=== PATIENT | female | born 1980 | race African-American/Black ===

== ENCOUNTER 2016-09-11 11:52 | Emergency (ER) | payer BC, MEDICAID ==
[~2016-09-11] VITALS: Ht 160 cm; Wt 97.5 kg
[~2016-09-11 11:52] MED LIST: DILATIN
[2016-09-11 12:18] VITALS: BP 124/76
== END 2016-09-11 14:07 | disposition home or self-care (01) ==
LOC: ER 11:55
DX: J01.00 Acute maxillary sinusitis, unspecified (principal); J02.9 Acute pharyngitis, unspecified

== ENCOUNTER 2017-02-06 10:07 | Emergency (ER) | payer BC, MEDICAID ==
[~2017-02-06] VITALS: Ht 160 cm; Wt 96.6 kg
[2017-02-06 10:24] VITALS: BP 131/73
== END 2017-02-06 11:16 | disposition home or self-care (01) ==
LOC: ER 10:07
DX: M25.561 Pain in right knee (principal); G89.29 Other chronic pain

== ENCOUNTER 2018-06-04 12:26 | Emergency (ER) | payer BC, MEDICAID ==
[~2018-06-04] VITALS: Ht 160 cm; Wt 95.3 kg
[2018-06-04 13:08] VITALS: BP 130/71
== END 2018-06-04 15:15 | disposition left against medical advice (07) ==
LOC: ER 12:27
DX: R51 Headache (principal); R11.0 Nausea; R05 Cough; R09.81 Nasal congestion; Z53.21 Procedure and treatment not carried out due to patient leaving prior to being seen by health care provider

== ENCOUNTER 2018-06-12 18:18 | Emergency (ER) | payer MEDICAID ==
[~2018-06-12] VITALS: Ht 160 cm; Wt 96.6 kg
[2018-06-12 18:51] VITALS: BP 134/83
[2018-06-12] MEDS ORDERED: IPRATROPIUM BROM 0.5 MG/2.5ML INH SOL NEB ONE (19:30)
[2018-06-12] MEDS ORDERED: ALBUTEROL SULF 2.5 MG/0.5ML(0.5%) NEB SOLN NEB ONE (19:30)
[2018-06-12] MEDS ORDERED: ACETAMINOPHEN 500 MG TAB PO ONE (20:45)
[2018-06-12] MEDS ORDERED: IBUPROFEN 800 MG TAB PO ONE (20:45)
== END 2018-06-12 20:14 | disposition home or self-care (01) ==
LOC: ER 18:18
DX: J18.9 Pneumonia, unspecified organism (principal); R06.02 Shortness of breath
CPT/HCPCS: 71046; 81025; 94640; 99284; J7611; J7644